=== PATIENT | female | born 1960 | race Hispanic/Latino ===

== ENCOUNTER 2017-07-08 08:41 | Observation (INO) | payer OTHER ==
--- NOTE | 2017-07-08 10:20 | RAD ---
PROCEDURE: Radiographs of the left humerus. HISTORY: Fall, left arm injury COMPARISON: None. FINDINGS: BONES: Bone alignment and mineralization are normal. There is no acute displaced fracture or bone destruction. SOFT TISSUES: Normal. OTHER FINDINGS: None. IMPRESSION: No acute displaced fracture or dislocation.
--- NOTE | 2017-07-08 10:22 | RAD ---
PROCEDURE: Radiographs of the left elbow. HISTORY: Fall COMPARISON: No prior. FINDINGS: BONES: There is an acute displaced fracture in the olecranon process with 10 mm superior displacement. JOINTS: Bone alignment is normal. . SOFT TISSUES: There is severe dorsal soft tissue swelling. JOINT EFFUSION: There is a moderate joint effusion. OTHER FINDINGS: None IMPRESSION: Acute displaced fracture in the olecranon process, moderate joint effusion and severe dorsal soft tissue swelling.
--- NOTE | 2017-07-08 10:23 | RAD ---
PROCEDURE: Radiographs of the Left Forearm HISTORY: fall L arm trauma COMPARISON: None available. TECHNIQUE: Frontal and lateral views obtained. FINDINGS: BONES: There is an acute displaced fracture in the olecranon process with 10 mm superior displacement. Bone alignment and mineralization are normal. JOINT SPACES: Unremarkable. OTHER FINDINGS: There is severe dorsal soft tissue swelling at the elbow joint. IMPRESSION: Acute displaced fracture in the olecranon process with severe dorsal soft tissue swelling at the elbow joint.
--- NOTE | 2017-07-08 10:28 | RAD ---
PROCEDURE: Radiographs of the Left Shoulder HISTORY: Fall COMPARISON: No prior. FINDINGS: BONES: Bone alignment and mineralization are normal. There is no acute displaced fracture or bone destruction. JOINTS: Normal. Glenohumeral and acromioclavicular joints preserved. No osteoarthritis. SOFT TISSUES: Normal. OTHER FINDINGS: None. IMPRESSION: No acute displaced fracture or dislocation.
--- NOTE | 2017-07-08 10:51 | ED PDOC ---
Upper Extremity Pain/Injury Time Seen by Provider: 07/08/17 09:10 Chief Complaint (Nursing): Upper Extremity Problem/Injury Chief Complaint (Provider): Fall injuries History Per: Patient History/Exam Limitations: no limitations Onset/Duration Of Symptoms: Hrs (today) Current Symptoms Are (Timing): Still Present Quality: "Pain" Additional Complaint(s): Angelika Erickson is a 56 year old female, with no significant past medical history, who was brought to the emergency department via EMS for left elbow injury s/p fall onset prior to arrival. Patient states she was commuting to work this morning attempting to catch [employer] [facility] [place] when she accidentally tripped and fell. Patient is right hand dominant. She denies any head or neck trauma, back pain, lower extremity pain, numbness or tingling to left hand or arm. No further medical complaints. PMD: None provided. Past Medical History Reviewed: Historical Data, Nursing Documentation, Vital Signs Vital Signs: Last Vital Signs Temp 97.8 F 07/08/17 08:45 Pulse 62 07/08/17 08:45 Resp 20 07/08/17 08:45 BP 161/106 H 07/08/17 08:45 Pulse Ox 100 07/08/17 08:45 - Medical History PMH: No Chronic Diseases - Surgical History Surgical History: Appendectomy Other surgeries: Right arm fracture repair - Family History Family History: States: No Known Family Hx - Social History Current smoker - smoking cessation education provided: No Alcohol: None Drugs: Denies - Allergies Allergies/Adverse Reactions: Allergies Allergy/AdvReac Type Severity Reaction Status Date / Time No Known Allergies Allergy Verified 07/08/17 08:48 Review of Systems ROS Statement: Except As Marked, All Systems Reviewed And Found Negative Musculoskeletal: Positive for: Arm Pain (left). Negative for: Neck Pain, Back Pain, Leg Pain, Foot Pain Neurological: Negative for: Numbness (to left hand) Physical Exam - Reviewed Nursing Documentation Reviewed: Yes Vital Signs Reviewed: Yes - Physical Exam Appears: Positive for: Non-toxic Head Exam: Positive for: ATRAUMATIC, NORMOCEPHALIC Skin: Positive for: Normal Color, Warm, Dry Eye Exam: Positive for: Normal appearance, EOMI, PERRL ENT: Positive for: Normal ENT Inspection Neck: Positive for: Painless ROM (No C-spine tenderness), Supple Cardiovascular/Chest: Positive for: Regular Rate, Rhythm, Chest Non Tender. Negative for: Murmur Respiratory: Positive for: Normal Breath Sounds. Negative for: Respiratory Distress Gastrointestinal/Abdominal: Positive for: Normal Exam, Soft. Negative for: Tenderness Back: Positive for: Normal Inspection. Negative for: L CVA Tenderness, R CVA Tenderness, Vertebral Tenderness Extremity: Positive for: Swelling (over the olecranon dorsal area, ++tender loss ROM), Other (small abrasion to right index finger. ). Negative for: Normal ROM (Left arm immobility of left elbow w/ pain and edema over the olecranon dorsal area.), Tenderness (Wrist and hand. Shoulder including clavicle nontender. ) Neurologic/Psych: Positive for: Alert, Oriented. Negative for: Motor/Sensory Deficits - ECG O2 Sat by Pulse Oximetry: 100 (RA) Pulse Ox Interpretation: Normal Medical Decision Making Medical Decision Making: Initial Impression: Fall injuries Initial Plan: --Morphine 2ml IM --Tylenol 325mg tab 650 mg PO --Elbow left 3 views routine [RAD] --Forearm left [RAD] --Humerus left [RAD] --Shoulder left [RAD] --reevaluation 10:18 Humerus X-Ray FINDINGS: BONES: Bone alignment and mineralization are normal. There is no acute displaced fracture or bone destruction. SOFT TISSUES: Normal. OTHER FINDINGS: None. IMPRESSION: No acute displaced fracture or dislocation. 10:22 Forearm X-Ray FINDINGS: BONES: There is an acute displaced fracture in the olecranon process with 10 mm superior displacement. Bone alignment and mineralization are normal. JOINT SPACES: Unremarkable. OTHER FINDINGS: There is severe dorsal soft tissue swelling at the elbow joint. IMPRESSION: Acute displaced fracture in the olecranon process with severe dorsal soft tissue swelling at the elbow joint. 10:20 Elbow X-Ray FINDINGS: BONES: There is an acute displaced fracture in the olecranon process with 10 mm superior displacement. JOINTS: Bone alignment is normal. . SOFT TISSUES: There is severe dorsal soft tissue swelling. JOINT EFFUSION: There is a moderate joint effusion. OTHER FINDINGS: None IMPRESSION: Acute displaced fracture in the olecranon process, moderate joint effusion and severe dorsal soft tissue swelling. 10:26 Shoulder X-Ray FINDINGS: BONES: Bone alignment and mineralization are normal. There is no acute displaced fracture or bone destruction. JOINTS: Normal. Glenohumeral and acromioclavicular joints preserved. No osteoarthritis. SOFT TISSUES: Normal. OTHER FINDINGS: None. IMPRESSION: No acute displaced fracture or dislocation. -Xray show acute fracture of left olecranon process displaced. -Will plan for ortho consult. 10:35 -Discussed case with kranthi El, who will come evaluate patient. - 1110am d/w Dr To orthopedics requested posterior splint, applied by tech confirmed by MD Admit Obs for orthopedic management/obs for compartment syndrome given edema/ fracture Scribe Attestation: Documented by Miquel Costa, acting as a scribe for Ru Norman MD Provider Scribe Attestation: All medical record entries made by the Scribe were at my direction and personally dictated by me. I have reviewed the chart and agree that the record accurately reflects my personal performance of the history, physical exam, medical decision making, and the department course for this patient. I have also personally directed, reviewed, and agree with the discharge instructions and disposition. Disposition - Clinical Impression Clinical Impression: Olecranon fracture - Patient ED Disposition Is Patient to be Admitted: Yes - Disposition Disposition Time: 10:55 Condition: FAIR - Pt Status Changed To: Hospital Disposition Of: Observation
--- NOTE | 2017-07-08 11:19 | CP.PCM.CON ---
History of Present Illness - History of Present Illness History of Present Illness: Orthopedic consult Patient is a RHD 56 y/o patient with no PMH who presents to [facility] ER following a L elbow injury. Patient states that she sustained a mechanical fall while [place] [address], commuting to work in [place] from [facility]. She notes that she fell directly onto her L elbow. Dr. To was consulted for orthopedic evaluation. Currently her pain is dull, aching in quality and locate diffusely about the elbow, mostly posterior. She rates the pain a 7/10 and it is associated with swelling. She notes that the pain occurs with any movement and is alleviated with rest and inactivity. The patient reports no other injuries. She denies any radiation of pain, numbness or tingling. She also denies any CP/SOB/N/V/D/fever/[place]/dysuria/melena. Review of Systems - Review of Systems All systems: reviewed and no additional remarkable complaints except Review of Systems: as per HPI Past Patient History - Past Medical History & Family History Past Medical History?: No Past Family History: Reviewed and not pertinent - Past Social History Smoking Status: Never Smoked Alcohol: Occasional (wine) Drugs: Denies - CARDIAC Hx Cardiac Disorders: No - PULMONARY Hx Respiratory Disorders: No - NEUROLOGICAL Hx Neurological Disorder: No - HEENT Hx HEENT Problems: No - RENAL Hx Chronic Kidney Disease: No - ENDOCRINE/METABOLIC Hx Endocrine Disorders: No - HEMATOLOGICAL/ONCOLOGICAL Hx Blood Disorders: No - INTEGUMENTARY Hx Dermatological Problems: No - MUSCULOSKELETAL/RHEUMATOLOGICAL Hx Musculoskeletal Disorders: Yes Hx Fractures: Yes (R wrist fx, s/p ORIF) - GASTROINTESTINAL Hx Gastrointestinal Disorders: No - GENITOURINARY/GYNECOLOGICAL Hx Genitourinary Disorders: No - PSYCHIATRIC Hx Psychophysiologic Disorder: No Hx Substance Use: No - SURGICAL HISTORY Hx Surgeries: Yes Hx Appendectomy: Yes Hx Orthopedic Surgery: Yes (R wrist ORIF) - ANESTHESIA Hx Anesthesia: Yes Hx Anesthesia Reactions: No Meds Allergies/Adverse Reactions: Allergies Allergy/AdvReac Type Severity Reaction Status Date / Time No Known Allergies Allergy Verified 07/08/17 08:48 - Medications Medications: none Physical Exam - Head Exam Head Exam: ATRAUMATIC, NORMOCEPHALIC - Eye Exam Eye Exam: EOMI, Normal appearance, PERRL - ENT Exam ENT Exam: Mucous Membranes Moist, Normal Exam - Neck Exam Neck exam: Positive for: Normal Inspection - Respiratory Exam Respiratory Exam: Clear to Auscultation Bilateral, NORMAL BREATHING PATTERN - Cardiovascular Exam Cardiovascular Exam: REGULAR RHYTHM - GI/Abdominal Exam GI & Abdominal Exam: Normal Bowel Sounds, Soft Additional comments: old appendectomy scar - Rectal Exam Rectal Exam: Deferred - Extremities Exam Additional comments: LUE: + swelling diffusely about elbow, +diffuse elbow tenderness with guarding, no lesions FROM shoulder/wrist/fingers, elbow ROM restricted due to fx sensation intact MN/UN/RN motor intact MN/UN/RN, decreased culture media laboratory assistant strength due to pain radial pulse intact comps soft NT RUE: no swelling, no tenderness, no lesions FROM sensation intact MN/UN/RN motor intact MN/UN/RN, good culture media laboratory assistant strength radial pulse intact comps soft NT Results - Vital Signs Recent Vital Signs: Last Vital Signs Temp 97.8 F 07/08/17 08:45 Pulse 62 07/08/17 08:45 Resp 20 07/08/17 08:45 BP 161/106 H 07/08/17 08:45 Pulse Ox 100 07/08/17 11:13 - Labs Result Diagrams: 07/08/17 12:30 07/08/17 12:30 Assessment & Plan (1) Olecranon fracture Assessment and Plan: Patient is a 56 y/o female who sustained a displaced left elbow olecranon fx -CT L elbow -Posterior long arm splint applied -NPO -NWB LUE, eliseo LUE -Proposed L elbow olecranon fx ORIF in OR today versus tomorrow, Risks/benefits of procedure explained to patient in detail. Patient agrees to proceed. -medical and cardiac clearance -above d/w Dr. To in agreement Status: Acute Radiology Interpretation - Plant Safety Engineer Plant Safety Engineer:: Radiologist - Study type Study type:: Plain films - Notes: Notes:: PROCEDURE: Radiographs of the left elbow. HISTORY: Fall COMPARISON: No prior. FINDINGS: BONES: There is an acute displaced fracture in the olecranon process with 10 mm superior displacement. JOINTS: Bone alignment is normal. . SOFT TISSUES: There is severe dorsal soft tissue swelling. JOINT EFFUSION: There is a moderate joint effusion. OTHER FINDINGS: None IMPRESSION: Acute displaced fracture in the olecranon process, moderate joint effusion and severe dorsal soft tissue swelling. - Radiology Interpretation #2 Interpretation: PROCEDURE: Radiographs of the Left Shoulder HISTORY: Fall COMPARISON: No prior. FINDINGS: BONES: Bone alignment and mineralization are normal. There is no acute displaced fracture or bone destruction. JOINTS: Normal. Glenohumeral and acromioclavicular joints preserved. No osteoarthritis. SOFT TISSUES: Normal. OTHER FINDINGS: None. IMPRESSION: No acute displaced fracture or dislocation. - Radiology Interpretation #3 Interpretation: PROCEDURE: Radiographs of the Left Forearm HISTORY: fall L arm trauma COMPARISON: None available. TECHNIQUE: Frontal and lateral views obtained. FINDINGS: BONES: There is an acute displaced fracture in the olecranon process with 10 mm superior displacement. Bone alignment and mineralization are normal. JOINT SPACES: Unremarkable. OTHER FINDINGS: There is severe dorsal soft tissue swelling at the elbow joint. IMPRESSION: Acute displaced fracture in the olecranon process with severe dorsal soft tissue swelling at the elbow joint. PROCEDURE: Radiographs of the left humerus. HISTORY: Fall, left arm injury COMPARISON: None. FINDINGS: BONES: Bone alignment and mineralization are normal. There is no acute displaced fracture or bone destruction. SOFT TISSUES: Normal. OTHER FINDINGS: None.
--- NOTE | 2017-07-08 11:40 | RAD ---
HISTORY: preop COMPARISON: No prior. FINDINGS: LUNGS: The lungs are well inflated and clear. PLEURA: No significant pleural effusion identified, no pneumothorax apparent. CARDIOVASCULAR: Normal. OSSEOUS STRUCTURES: No significant abnormalities. VISUALIZED UPPER ABDOMEN: Normal. OTHER FINDINGS: None. IMPRESSION: No active pulmonary disease.
[2017-07-08 12:44] LABS: BASO % 0.5 % (0.0-2.0); EOS % 0.2 % (0.0-4.0); HEMOGLOBIN 13.4 g/dL (12.0-16.0); LYMPH # 1.5 K/uL (1.0-4.3); LYMPH % 32.6 % (20.0-40.0); MEAN CELL VOLUME 95.3 fl (81.0-99.0); MEAN CORPUSCULAR HGB CONC 33.6 g/dL (33.0-37.0); MEAN PLATELET VOLUME 7.9 fl (7.2-11.7); MONO # 0.4 K/uL (0.0-0.8); MONO % 7.9 % (0.0-10.0); NEUT # 2.8 K/uL (1.8-7.0); NEUT % 58.8 % (50.0-75.0); NRBC % 0.1 % (0.0-0.0); RBC 4.19 Mil/uL (3.80-5.20); RED CELL DISTRIBUTION WIDTH 13.6 % (11.5-14.5); WHITE BLOOD COUNT 4.7 K/uL (4.8-10.8)
[2017-07-08 12:58] LABS: PARTIAL THROMBOPLASTIN TIME 30.3 Seconds (25.6-37.1); PROTHROMBIN TIME 10.7 Seconds (9.8-13.1)
[2017-07-08 12:59] LABS: BLOOD UREA NITROGEN 15 mg/dl (7-17); CALCIUM 9.3 mg/dL (8.4-10.2); GFR AFRICAN-AMERICAN > 60; GFR NON-AFRICAN AMERICAN > 60
--- NOTE | 2017-07-08 13:13 | CP.PCM.CON ---
History of Present Illness - History of Present Illness History of Present Illness: I WAS ASKED TO SEE THIS PATIENT PRE-OPERATIVE FOR A CARDIAC CLEARANCE. THE PATIENT IS A 56 YEAR OLD FEMALE WHO TRIPPED AT THE [employer] [facility] GOING TO WORK TODAY AND SUSTAINED A LEFT ELBOW FRACTURE. SHE WAS BROUGHT TO THE [facility] ER AND WILL NOW GO FOR ORTHOPEDIC SURGERY. SHE DENIES ANY KNOWN MEDICAL PROBLEMS. SHE DENIES CHEST PAIN OR SOB. SHE DENIES LOC STATING THAT SHE JUST TRIPPED AND FELL. Past Patient History - Past Medical History & Family History Past Medical History?: No Past Family History: Reviewed and not pertinent - Past Social History Smoking Status: Never Smoked Alcohol: Occasional (wine) Drugs: Denies - CARDIAC Hx Cardiac Disorders: No - PULMONARY Hx Respiratory Disorders: No - NEUROLOGICAL Hx Neurological Disorder: No - HEENT Hx HEENT Problems: No - RENAL Hx Chronic Kidney Disease: No - ENDOCRINE/METABOLIC Hx Endocrine Disorders: No - HEMATOLOGICAL/ONCOLOGICAL Hx Blood Disorders: No - INTEGUMENTARY Hx Dermatological Problems: No - MUSCULOSKELETAL/RHEUMATOLOGICAL Hx Musculoskeletal Disorders: Yes Hx Fractures: Yes (R wrist fx, s/p ORIF) - GASTROINTESTINAL Hx Gastrointestinal Disorders: No - GENITOURINARY/GYNECOLOGICAL Hx Genitourinary Disorders: No - PSYCHIATRIC Hx Psychophysiologic Disorder: No Hx Substance Use: No - SURGICAL HISTORY Hx Surgeries: Yes Hx Appendectomy: Yes Hx Orthopedic Surgery: Yes (R wrist ORIF) - ANESTHESIA Hx Anesthesia: Yes Hx Anesthesia Reactions: No Meds Allergies/Adverse Reactions: Allergies Allergy/AdvReac Type Severity Reaction Status Date / Time No Known Allergies Allergy Verified 07/08/17 08:48 Physical Exam - Respiratory Exam Respiratory Exam: Clear to Auscultation Bilateral - Cardiovascular Exam Cardiovascular Exam: Bradycardia, +S1, +S2 - Extremities Exam Additional comments: NO EDEMA OF LE - Additional Findings Additional findings: 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, R 49, OTHERWISE NORMAL EKG Results - Vital Signs Recent Vital Signs: Last Vital Signs Temp 97.8 F 07/08/17 12:45 Pulse 62 07/08/17 12:45 Resp 20 07/08/17 12:45 BP 161/106 H 07/08/17 12:45 Pulse Ox 100 07/08/17 11:42 - Labs Result Diagrams: 07/08/17 12:30 07/08/17 12:30 Labs: Laboratory Results - last 24 hr 07/08/17 07/08/17 07/08/17 12:30 12:30 12:30 WBC 4.7 L RBC 4.19 Hgb 13.4 Hct 39.9 MCV 95.3 MCH 32.0 H MCHC 33.6 RDW 13.6 Plt Count 297 MPV 7.9 Neut % (Auto) 58.8 Lymph % (Auto) 32.6 [place] % (Auto) 7.9 Eos % (Auto) 0.2 Baso % (Auto) 0.5 Neut # (Auto) 2.8 Lymph # (Auto) 1.5 [place] # (Auto) 0.4 Eos # (Auto) 0.0 Baso # (Auto) 0.0 PT 10.7 INR 1.0 APTT 30.3 Sodium 140 Potassium 4.5 Chloride 101 Carbon Dioxide 26 Anion Gap 18 BUN 15 Creatinine 0.7 Est GFR ( Amer) > 60 Est GFR (Non-Af Amer) > 60 Random Glucose 110 H Calcium 9.3 BBK History Checked 07/08/17 12:48 WBC RBC Hgb Hct MCV MCH MCHC RDW Plt Count MPV Neut % (Auto) Lymph % (Auto) [place] % (Auto) Eos % (Auto) Baso % (Auto) Neut # (Auto) Lymph # (Auto) [place] # (Auto) Eos # (Auto) Baso # (Auto) PT INR APTT Sodium Potassium Chloride Carbon Dioxide Anion Gap BUN Creatinine Est GFR ( Amer) Est GFR (Non-Af Amer) Random Glucose Calcium BBK History Checked No verified bt Assessment & Plan - Assessment and Plan (Free Text) Assessment: FALL WITH LEFT ELBOW FRACTURE SINUS BRADYCARDIA-BENIGN Plan: THE PATIENT IS CLEARED FOR SURGERY
--- NOTE | 2017-07-08 13:34 | CP.PCM.HP ---
History of Present Illness - History of Present Illness History of Present Illness: 56 y/o female with no PMH presented to Er for evaluation of her left elbow. history obtained from patient . As per her she had a mechanical fall on her left elbow ,while crossing the street early today. She denied any dizziness, blurry vision , palpitations, localized weakness.She went to work and felt like something was not right so decided to come to ER. Imaging in ER showed Acute displaced fracture in the olecranon process, moderate joint effusion and severe dorsal soft tissue swelling. She has worsening of pain with movement but at present pain is controlled with morphine. She denies any chest pain , SOB, palpittaiosn, PND, orthopnea, urinary symptoms or changes in bowel movements .She denies any numbness or tingling sensation to her arm and fingers.ortho consulted in ER that recommended surgical correction . Last meal was early this AM. 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 Code status ; full code ROS ; 14 point review of system negative except above Present on Admission - Present on Admission Any Indicators Present on Admission: No Review of Systems - Review of Systems All systems: reviewed and no additional remarkable complaints except Past Patient History - Infectious Disease Hx of Infectious Diseases: None - Tetanus Immunizations Tetanus Immunization: Unknown - Past Medical History & Family History Past Medical History?: No Past Family History: Reviewed and not pertinent - Past Social History Smoking Status: Never Smoked Chewing Tobacco Use: No Cigar Use: No Alcohol: Occasional (wine) Drugs: Denies Domestic Violence: Negative - CARDIAC Hx Cardiac Disorders: No - PULMONARY Hx Respiratory Disorders: No - NEUROLOGICAL Hx Neurological Disorder: No - HEENT Hx HEENT Problems: No - RENAL Hx Chronic Kidney Disease: No - ENDOCRINE/METABOLIC Hx Endocrine Disorders: No - HEMATOLOGICAL/ONCOLOGICAL Hx Blood Disorders: No - INTEGUMENTARY Hx Dermatological Problems: No - MUSCULOSKELETAL/RHEUMATOLOGICAL Hx Musculoskeletal Disorders: Yes Hx Fractures: Yes (R wrist fx, s/p ORIF) - GASTROINTESTINAL Hx Gastrointestinal Disorders: No - GENITOURINARY/GYNECOLOGICAL Hx Genitourinary Disorders: No - PSYCHIATRIC Hx Psychophysiologic Disorder: No Hx Substance Use: No - SURGICAL HISTORY Hx Surgeries: Yes Hx Appendectomy: Yes Hx Orthopedic Surgery: Yes (R wrist ORIF) - ANESTHESIA Hx Anesthesia: Yes Hx Anesthesia Reactions: No Meds Allergies/Adverse Reactions: Allergies Allergy/AdvReac Type Severity Reaction Status Date / Time No Known Allergies Allergy Verified 07/08/17 08:48 Physical Exam - Constitutional Appears: Non-toxic, No Acute Distress - Head Exam Head Exam: ATRAUMATIC, NORMAL INSPECTION, NORMOCEPHALIC - Eye Exam Eye Exam: EOMI, Normal appearance, PERRL Pupil Exam: NORMAL ACCOMODATION - ENT Exam ENT Exam: Mucous Membranes Moist, Normal Exam - Neck Exam Neck exam: Positive for: Full Rom, Normal Inspection - Respiratory Exam Respiratory Exam: Clear to Auscultation Bilateral, NORMAL BREATHING PATTERN. absent: Rales, Rhonchi, Wheezes - Cardiovascular Exam Cardiovascular Exam: REGULAR RHYTHM, RRR, +S1, +S2. absent: JVD - GI/Abdominal Exam GI & Abdominal Exam: Normal Bowel Sounds, Soft. absent: Distended, Guarding, Rebound, Tenderness - Rectal Exam Rectal Exam: Deferred - Extremities Exam Extremities exam: Positive for: normal capillary refill. Negative for: calf tenderness, pedal edema Additional comments: left arm sling in place pulses intact - Back Exam Back exam: NORMAL INSPECTION - Neurological Exam Neurological exam: Alert, CN II-XII Intact, Oriented x3, Reflexes Normal - Psychiatric Exam Psychiatric exam: Normal Affect, Normal Mood - Skin Skin Exam: Dry, Intact, Normal Color, Warm Results - Vital Signs Recent Vital Signs: Last Vital Signs Temp 98.1 F 07/08/17 12:50 Pulse 53 L 07/08/17 12:50 Resp 18 07/08/17 12:50 BP 133/78 07/08/17 12:50 Pulse Ox 100 07/08/17 12:50 - Labs Result Diagrams: 07/08/17 12:30 07/08/17 12:30 Labs: Laboratory Results - last 24 hr 07/08/17 07/08/17 07/08/17 12:30 12:30 12:30 WBC 4.7 L RBC 4.19 Hgb 13.4 Hct 39.9 MCV 95.3 MCH 32.0 H MCHC 33.6 RDW 13.6 Plt Count 297 MPV 7.9 Neut % (Auto) 58.8 Lymph % (Auto) 32.6 [place] % (Auto) 7.9 Eos % (Auto) 0.2 Baso % (Auto) 0.5 Neut # (Auto) 2.8 Lymph # (Auto) 1.5 [place] # (Auto) 0.4 Eos # (Auto) 0.0 Baso # (Auto) 0.0 PT 10.7 INR 1.0 APTT 30.3 Sodium 140 Potassium 4.5 Chloride 101 Carbon Dioxide 26 Anion Gap 18 BUN 15 Creatinine 0.7 Est GFR ( Amer) > 60 Est GFR (Non-Af Amer) > 60 Random Glucose 110 H Calcium 9.3 BBK History Checked 07/08/17 12:48 WBC RBC Hgb Hct MCV MCH MCHC RDW Plt Count MPV Neut % (Auto) Lymph % (Auto) [place] % (Auto) Eos % (Auto) Baso % (Auto) Neut # (Auto) Lymph # (Auto) [place] # (Auto) Eos # (Auto) Baso # (Auto) PT INR APTT Sodium Potassium Chloride Carbon Dioxide Anion Gap BUN Creatinine Est GFR ( Amer) Est GFR (Non-Af Amer) Random Glucose Calcium BBK History Checked No verified bt Assessment & Plan - Assessment and Plan (Free Text) Assessment: 56 y/o female with no PMH presented to Er for evaluation of her left elbow. history obtained from patient . As per her she had a mechanical fall on her left elbow ,while crossing the street early today. She denied any dizziness, blurry vision , palpitations, localized weakness.She went to work and felt like something was not right so decided to come to ER. Imaging in ER showed Acute displaced fracture in the olecranon process, moderate joint effusion and severe dorsal soft tissue swelling. She has worsening of pain with movement but at present pain is controlled with morphine. She denies any chest pain , SOB, palpittaiosn, PND, orthopnea, urinary symptoms or changes in bowel movements .She denies any numbness or tingling sensation to her arm and fingers.Ortho consulted in ER that recommended surgical correction . Last meal was early this AM. 1. Left elbow fracture Place under observation in med/surg Keep NPO Ortho consulted NWB to LUE Pain management PRN Patient is low risk for surgery 2. DVT prophylaxis SCD
[2017-07-08] MEDS ORDERED: Sodium Chloride 0.9% 1,000 ML IV SCH (14:00)
[2017-07-08 15:56] LABS: URINE BILIRUBIN NEGATIVE (NEGATIVE); URINE BLOOD NEGATIVE (NEGATIVE); URINE CLARITY CLEAR (Clear); URINE COLOR COLORLESS (YELLOW); URINE GLUCOSE (UA) NEG (Normal); URINE LEUKOCYTE ESTERASE NEG Leu/uL (Negative); URINE PROTEIN NEGATIVE (NEGATIVE); URINE UROBILINOGEN 0.2-1.0 mg/dL (0.2-1.0)
--- NOTE | 2017-07-08 16:16 | CT ---
PROCEDURE: LEFT ELBOW CT WITHOUT CONTRAST HISTORY: L olecranon fx COMPARISON: Correlation is made with prior TECHNIQUE: A volumetric CT acquisition was performed through the left elbow without intravenous contrast for evaluation of left olecranon fracture. Reformatted datasets provided sagittal axial coronal planes including surface rendered series. Contrast Dose: None Radiation dose:Total exam DLP = 136.96 mGy-cm. This CT exam was performed using one or more of the following dose reduction techniques: Automated exposure control, adjustment of the mA and/or kV according to patient size, and/or use of iterative reconstruction technique. FINDINGS: There is a transverse fracture of the proximal ulna extending through the olecranon process which is distracted posteriorly and slightly superiorly by 2.5 cm. There is minimal comminution of the olecranon fracture with a small set fragment identified at the ulnar side of the olecranon process not distracted from the main fracture fragment. There is no dislocation or subluxation identified at this time either. The radial head is intact without acute fracture and no destructive bony lesion is appreciated. Surrounding soft tissue edema appears prominent however no additional fracture appreciate throughout the right elbow left elbow. The visualized distal humerus appears intact as well as the proximal ulna as imaged. IMPRESSION: Minimal comminuted fracture of the olecranon process distracted proximally from fracture site by approximate 2.5 cm without dislocation or subluxation. Prominent local soft tissue edema overlies the olecranon process. Please see discussion above.
[2017-07-08] MEDS ORDERED: Sodium Chloride 0.9% 500 ML IV ONE (17:23)
[2017-07-08] MEDS ORDERED: Succinylcholine 200 mg/10 ml Inj IV ONE (17:28)
[2017-07-08] MEDS ORDERED: Vecuronium 10 mg Inj ONE (17:28)
[2017-07-08] MEDS ORDERED: Propofol 10 mg/ml Inj (20 ML) ONE (17:28)
[2017-07-08] MEDS ORDERED: Lidocaine 4% (Laryng-O-Jet) Kit MM ONE (17:28)
[2017-07-08] MEDS ORDERED: Bupivacaine HCl 0.5% PF (30 ml) Inj ONE (17:33)
[2017-07-08] MEDS ORDERED: Lidocaine 2% Inj (20ml) ONE (17:34)
[2017-07-08] MEDS ORDERED: Bacitracin Ointment 30 GM TUBE ONE (17:34)
[2017-07-08] MEDS ORDERED: Bupivacaine 0.5% Inj(30mL) ONE (17:34)
[2017-07-08] MEDS ORDERED: Absorbable Gelatin Sponge Size 100 ONE (17:34)
[2017-07-08] MEDS ORDERED: Thrombin Topical 5,000 Int Units Spray Kit ONE (17:35)
[2017-07-08] MEDS ORDERED: Lactated Ringer's 1,000 ML IV ONE (18:25)
[2017-07-08] MEDS ORDERED: Midazolam 2 MG/2 ML VIAL ONE (18:27)
[2017-07-08] MEDS ORDERED: Neostigmine 1:1000 (1 mg/ml) Inj ONE (18:46)
[2017-07-08] MEDS ORDERED: Bacitracin OINT 15GM TOP ONE (19:37)
--- NOTE | 2017-07-08 20:06 | PCM.SURG1 ---
Surgeon's Initial Post Op Note - Surgeon's Notes Surgeon: Zuleika Senior Director Finance: LOLI Burdick Type of Anesthesia: General Endo Anesthesia Administered By: DR Rafael Barillas Pre-Operative Diagnosis: Displaced L olecranon fx Operative Findings: as above. hemorhage olecranon bursa. triceps tendon trauma Post-Operative Diagnosis: as above Operation Performed: ORIF dipslaced L olecranon fx. primary repair triceps tendon. excision olecranon bursa. autograft/allograft bone graft. appl posterior splint Specimen/Specimens Removed: callous/bone Estimated Blood Loss: EBL {In ML}: 5 Blood Products Given: N/A Drains Used: No Drains Post-Op Condition: Good Date of Surgery/Procedure: 07/08/17 Time of Surgery/Procedure: 19:05 (time in room/anaesthesia inductioin [id number])
--- NOTE | 2017-07-08 20:15 | CARD ---
APPROVED REPORT EKG Measurement Heart [id number] <Conclusion> Sinus bradycardia Otherwise normal ECG
[2017-07-08] MEDS ORDERED: HYDROmorphone 0.5 mg/0.5 ml ISec IVP PRN (20:21)
--- NOTE | 2017-07-08 20:24 | PCM.ANESB4 ---
Infraclavicular Block - Femoral Nerve Block Date of Procedure: 07/08/17 Anesthesiologist: Moe Pre-Procedure Diagnosis: Left olecranon fracture Post-Procedure Diagnosis: Same Procedure Performed: Brachial Plexus at the Infraclavicular area Left - Procedure Infraclavicular Block: The procedure was explained to the patient that it is for the post-operative pain management. Consent was obtained after a thorough discussion with the patient regarding the benefits and possible complications of local anesthetic block of the brachial plexus at the infraclavicular area. The patient was brought to the operating room and standard monitors were applied. Time-out was held with the circulating nurse to confirm the correct surgery and the appropriate block. Under general anesthesia, patient's head was gently rotated away from the operative ____left____ shoulder and the area medial to the coracoid process and inferior to the clavicle was carefully palpated. The ultrasound transducer was then applied to the skin in the transverse plane and the brachial plexus was visualized surrounding the axillary artery and deep to the pectoralis major and minor muscles. After thorough identification, this area was prepped with Chloraprep. At this point, a #21 gauge Stimuplex 4-inch needle was inserted cephalad to the ultrasound transducer and inferior to the clavicle in-plane towards the posterior aspect of the axillary artery. Needle advancement was performed carefully under ultrasound visualization. Nerve stimulator was used and twitch of the affected extremity including fingers, hand, wrist and elbow was obtained at current of ___0.48__MA. After repeated negative aspiration, __2___cc of _0.5_ ___% ____bupivivaine was injected and this was followed with __ _23___ cc of __0.5 % ___bupivicaine . Under ultrasound guidance the local anesthetics were observed surrounding the cords of the brachial plexus. The needle was removed intact. The patient tolerated the infraclavicular block of the brachial plexus well with stable vital signs was prepared for subsequent surgery.
[2017-07-08] MEDS ORDERED: Lactated Ringer's 1,000 ML IV SCH (20:30)
[2017-07-09 07:40] VITALS: BP 124/84; RESP 18; TEMP 97.3
--- NOTE | 2017-07-09 08:41 | CP.PCM.PN ---
Subjective - Date & Time of Evaluation Date of Evaluation: 07/09/17 Time of Evaluation: 07:30 - Subjective Subjective: Patient seen and examined at bedside comfortable. No complaints of pain 2nd to nerve block. No acute events overnight. Objective - Vital Signs/Intake and Output Vital Signs (last 24 hours): Temp Pulse Resp BP Pulse Ox 97.3 F L 62 18 124/84 100 07/09/17 07:39 07/09/17 07:39 07/09/17 07:39 07/09/17 07:39 07/09/17 07:39 - Medications Medications: Current Medications Acetaminophen (Tylenol 325mg Tab) 650 mg PO Q6 PRN PRN Reason: Fever >100.4 F Docusate Sodium (Colace) 100 mg PO BID [facility] Last Admin: 07/08/17 16:41 Dose: Not Given Sodium Chloride (Sodium Chloride 0.9%) 1,000 mls @ 100 mls/hr IV .Q10H [facility] Last Admin: 07/08/17 15:40 Dose: 100 mls/hr Lactated Ringer's (Lactated Ringer's) 1,000 mls @ 100 mls/hr IV .Q10H [facility] Last Admin: 07/09/17 02:19 Dose: 100 mls/hr Cefazolin Sodium 2 gm/ Sodium (Chloride) 100 mls @ 100 mls/hr IVPB Q8 [facility] PRN Reason: Protocol Stop: 07/09/17 09:59 Ketorolac Tromethamine (Toradol) 30 mg IVP Q6 PRN PRN Reason: Pain, moderate (4-7) Morphine Sulfate (Morphine) 2 mg IVP Q4 PRN PRN Reason: Pain, severe (8-10) Ondansetron HCl (Zofran Inj) 4 mg IVP Q6 PRN PRN Reason: Nausea/Vomiting Pantoprazole Sodium (Protonix Ec Tab) 40 mg PO DAILY [facility] - Labs Labs: 07/08/17 12:30 07/08/17 12:30 PT 10.7 Seconds (9.8-13.1) 07/08/17 12:30 INR 1.0 (0.9-1.2) 07/08/17 12:30 APTT 30.3 Seconds (25.6-37.1) 07/08/17 12:30 - Extremities Exam Additional comments: LUE: posterior splint CDI, minimal swelling sensation slightly diminished MN/RN/UN 2nd to nerve block motor intact MN/UN/RN 2 sec cap refill Assessment and Plan (1) Olecranon fracture Assessment & Plan: POD#1 s/p L olecranon fx ORIF -Maintain splint -OT NWB LUE -elevate extremity -clear to d/c home from ortho standpoint -f/u in office in 7-10 days, call for appt -above d/w Dr. To in agreement Status: Acute
[2017-07-09] MEDS ORDERED: Pantoprazole 40 mg EC Tab PO SCH (09:00)
--- NOTE | 2017-07-09 09:00 | CP.PCM.PN ---
Subjective - Date & Time of Evaluation Date of Evaluation: 07/09/17 Time of Evaluation: 08:30 - Subjective Subjective: NO COMPLAINTS Objective - Vital Signs/Intake and Output Vital Signs (last 24 hours): Temp Pulse Resp BP Pulse Ox 97.3 F L 62 18 124/84 100 07/09/17 07:39 07/09/17 07:39 07/09/17 07:39 07/09/17 07:39 07/09/17 07:39 - Medications Medications: Current Medications Acetaminophen (Tylenol 325mg Tab) 650 mg PO Q6 PRN PRN Reason: Fever >100.4 F Docusate Sodium (Colace) 100 mg PO BID [facility] Last Admin: 07/08/17 16:41 Dose: Not Given Sodium Chloride (Sodium Chloride 0.9%) 1,000 mls @ 100 mls/hr IV .Q10H [facility] Last Admin: 07/08/17 15:40 Dose: 100 mls/hr Lactated Ringer's (Lactated Ringer's) 1,000 mls @ 100 mls/hr IV .Q10H [facility] Last Admin: 07/09/17 02:19 Dose: 100 mls/hr Cefazolin Sodium 2 gm/ Sodium (Chloride) 100 mls @ 100 mls/hr IVPB Q8 [facility] PRN Reason: Protocol Stop: 07/09/17 09:59 Ketorolac Tromethamine (Toradol) 30 mg IVP Q6 PRN PRN Reason: Pain, moderate (4-7) Morphine Sulfate (Morphine) 2 mg IVP Q4 PRN PRN Reason: Pain, severe (8-10) Ondansetron HCl (Zofran Inj) 4 mg IVP Q6 PRN PRN Reason: Nausea/Vomiting Pantoprazole Sodium (Protonix Ec Tab) 40 mg PO DAILY [facility] - Labs Labs: 07/08/17 12:30 07/08/17 12:30 PT 10.7 Seconds (9.8-13.1) 07/08/17 12:30 INR 1.0 (0.9-1.2) 07/08/17 12:30 APTT 30.3 Seconds (25.6-37.1) 07/08/17 12:30 - Respiratory Exam Respiratory Exam: Clear to Ausculation Bilateral - Cardiovascular Exam Cardiovascular Exam: REGULAR RHYTHM, +S1, +S2 - Extremities Exam Additional comments: LUE IN CAST - Additional Findings Additional findings: OR NOTES REVIEWED WITH ORIF OF LEFT OLECRANON FX Assessment and Plan - Assessment and Plan (Free Text) Assessment: SURGICAL REPAIR OF LEFT ELBOW FRACTURE STABLE CARDIAC FUNCTION Plan: CONTINUE ANTIBIOTICS AND PAIN MEDICATIONS
--- NOTE | 2017-07-09 09:13 | RAD ---
PROCEDURE: Radiographs of the left elbow. HISTORY: post op ORIF COMPARISON: Left ankle radiographs dated 07/08/2017. FINDINGS: Left upper extremity cast is now present, limiting evaluation of fine bony detail. There has been interval reduction internal pain and wire fixation of the previously described olecranon fracture with osseous components now in anatomic alignment. No other significant interval changes are noted IMPRESSION: Interval ORIF of the previously described olecranon fracture.
[2017-07-09] MEDS: ceFAZolin 2 GM in Sodium Chloride 0.9% 100 ML IVPB SCH ×2 (09:51→13:08)
--- NOTE | 2017-07-09 09:57 | CP.PCM.DIS ---
Provider - Provider Date of Admission: 07/08/17 11:14 Attending physician: Greta France MD Consults: Ortho : Dr To Cardio: Dr Murillo Time Spent in preparation of Discharge (in minutes): 25 Diagnosis - Discharge Diagnosis (1) Olecranon fracture Status: Acute Hospital Course - Lab Results Lab Results: Most Recent Lab Values WBC 4.7 K/uL (4.8-10.8) L 07/08/17 12:30 RBC 4.19 Mil/uL (3.80-5.20) 07/08/17 12:30 Hgb 13.4 g/dL (12.0-16.0) 07/08/17 12:30 Hct 39.9 % (34.0-47.0) 07/08/17 12:30 MCV 95.3 fl (81.0-99.0) 07/08/17 12:30 MCH 32.0 pg (27.0-31.0) H 07/08/17 12:30 MCHC 33.6 g/dL (33.0-37.0) 07/08/17 12:30 RDW 13.6 % (11.5-14.5) 07/08/17 12:30 Plt Count 297 K/uL (130-400) 07/08/17 12:30 MPV 7.9 fl (7.2-11.7) 07/08/17 12:30 Neut % (Auto) 58.8 % (50.0-75.0) 07/08/17 12:30 Lymph % (Auto) 32.6 % (20.0-40.0) 07/08/17 12:30 Hitchcock % (Auto) 7.9 % (0.0-10.0) 07/08/17 12:30 Eos % (Auto) 0.2 % (0.0-4.0) 07/08/17 12:30 Baso % (Auto) 0.5 % (0.0-2.0) 07/08/17 12:30 Neut # (Auto) 2.8 K/uL (1.8-7.0) 07/08/17 12:30 Lymph # (Auto) 1.5 K/uL (1.0-4.3) 07/08/17 12:30 Hitchcock # (Auto) 0.4 K/uL (0.0-0.8) 07/08/17 12:30 Eos # (Auto) 0.0 K/uL (0.0-0.7) 07/08/17 12:30 Baso # (Auto) 0.0 K/uL (0.0-0.2) 07/08/17 12:30 PT 10.7 Seconds (9.8-13.1) 07/08/17 12:30 INR 1.0 (0.9-1.2) 07/08/17 12:30 APTT 30.3 Seconds (25.6-37.1) 07/08/17 12:30 Sodium 140 mmol/l (132-148) 07/08/17 12:30 Potassium 4.5 MMOL/L (3.6-5.0) 07/08/17 12:30 Chloride 101 mmol/L (98-107) 07/08/17 12:30 Carbon Dioxide 26 mmol/L (22-30) 07/08/17 12:30 Anion Gap 18 (10-20) 07/08/17 12:30 BUN 15 mg/dl (7-17) 07/08/17 12:30 Creatinine 0.7 mg/dl (0.7-1.2) 07/08/17 12:30 Est GFR ( Amer) > 60 07/08/17 12:30 Est GFR (Non-Af Amer) > 60 07/08/17 12:30 Random Glucose 110 mg/dL (65-105) H 07/08/17 12:30 Calcium 9.3 mg/dL (8.4-10.2) 07/08/17 12:30 Urine Color Colorless (YELLOW) 07/08/17 15:45 Urine Clarity Clear (Clear) 07/08/17 15:45 Urine pH 7.0 (5.0-8.0) 07/08/17 15:45 Ur Specific [place] 1.005 (1.003-1.030) 07/08/17 15:45 Urine Protein Negative mg/dL (NEGATIVE) 07/08/17 15:45 Urine Glucose (UA) Neg mg/dL (Normal) 07/08/17 15:45 Urine Ketones Negative mg/dL (NEGATIVE) 07/08/17 15:45 Urine Blood Negative (NEGATIVE) 07/08/17 15:45 Urine Nitrate Negative (NEGATIVE) 07/08/17 15:45 Urine Bilirubin Negative (NEGATIVE) 07/08/17 15:45 Urine Urobilinogen 0.2-1.0 mg/dL (0.2-1.0) 07/08/17 15:45 Ur Leukocyte Esterase Neg Martha/uL (Negative) 07/08/17 15:45 Urine RBC (Auto) 1 /hpf (0-3) 07/08/17 15:45 Blood Type A POSITIVE 07/08/17 12:48 Blood Type Confirm A POSITIVE 07/08/17 14:32 Antibody Screen Negative 07/08/17 12:48 BBK History Checked No verified bt 07/08/17 12:48 - Hospital Course Hospital Course: 56 y/o female with no PMH presented to the ED for evaluation of left elbow pain after a mechanical fall. She denied any dizziness, blurry vision , palpitations, localized weakness. Imaging in ER showed Acute displaced fracture in the olecranon process, moderate joint effusion and severe dorsal soft tissue swelling. Ortho was consulted and Pt had 1. Left elbow fracture ( Olecranon Process) s/p ORIF Ortho consulted : Dr To Pt had ORIF done yesterday Doing well post op Keep Left arm elevated NWB to LUE Pain management d/c home - ff up with Dr To next wk 2. DVT prophylaxis SCD Discharge Exam - Head Exam Head Exam: ATRAUMATIC, NORMAL INSPECTION, NORMOCEPHALIC - Eye Exam Eye Exam: EOMI, Normal appearance, PERRL Pupil Exam: NORMAL ACCOMODATION - ENT Exam ENT Exam: Mucous Membranes Moist, Normal External Ear Exam - Neck Exam Neck exam: Full Rom - Respiratory Exam Respiratory Exam: NORMAL BREATHING PATTERN. absent: Respiratory Distress - Cardiovascular Exam Cardiovascular Exam: REGULAR RHYTHM, +S1, +S2 - GI/Abdominal Exam GI & Abdominal Exam: Normal Bowel Sounds, Soft. absent: Tenderness - Extremities Exam Extremities exam: normal capillary refill, normal inspection, pedal pulses present Additional comments: left arm with dressing - placed on Shoulder immobilizer - Back Exam Back exam: FULL ROM. absent: CVA tenderness (L), CVA tenderness (R), paraspinal tenderness, vertebral tenderness - Neurological Exam Neurological exam: Alert, CN II-XII Intact, Normal Gait, Oriented x3, Reflexes Normal - Psychiatric Exam Psychiatric exam: Normal Affect, Normal Mood - Skin Skin Exam: Dry, Normal Color, Warm Discharge Plan - Discharge Medications Prescriptions: oxyCODONE/Acetaminophen [Percocet 5/325 mg Tab] 1 ea PO Q6 PRN #20 tab PRN Reason: Pain, Moderate (4-7) - Follow Up Plan Condition: GOOD Disposition: HOME/ ROUTINE Instructions: Elbow Fracture (DC), Open Reduction and Internal Fixation Surgery (DC) Additional Instructions: ff up with DR To in 1 wk Keep arm elevated Use Shoulder immobilizer Referrals: Mani To III, MD [Staff Provider] - Kush Tafoya MD [Family Provider] -
[2017-07-09 10:44] VITALS: PULSE 72; O2SAT 97
--- NOTE | 2017-07-10 07:45 | OP ---
PROCEDURE DATE: 07/08/17 PREOPERATIVE DIAGNOSIS: Displaced olecranon fracture. POSTOPERATIVE DIAGNOSIS: Displaced olecranon fracture. PROCEDURE: 1. Open reduction internal fixation displaced left olecranon fracture. 2. Primary repair of triceps tendon. 3. Partial bursectomy. 4. Autograft, allograft bone graft. 5. Application posterior splint. 6. Positioning of fluoroscope interpretation of video images. SURGEON Dr. To. GROUP WORK PROGRAM DIRECTOR: Paz Noriega, certified registered nursing heel sprayer first. ANESTHESIA: General endotracheal anesthesia. ANESTHESIOLOGIST: Rafael Rosa MD COMPLICATIONS: No complications. DRAINS: No drains. OPERATIVE INDICATION: Angelika Erickson is a 56-year-old woman who fell crossing the [facility] directly on her left elbow sustaining fracture. The patient works in [employer] and presents the Emergency Room with a displaced left olecranon fracture. The patient is admitted, stabilized. Pros, cons, risks and benefits of surgical approach discussed. The possibility of mechanical failure, infection, thromboembolic disease, secondary or tertiary surgery was discussed. The patient understands the discomfort and wished the surgery to be accomplished. Possibility of stiffness, mechanical failure, infection, thromboembolic disease, nerve injury was discussed. OPERATIVE PROCEDURE: After having obtained informed consent, after having identified side, site and procedure and a critical pause/time-out after the satisfactory induction of the anesthetic, the patient identified as an Angelika Erickson in the supine position with all bony prominences well padded. The left upper extremity was prepped and free draped in usual fashion for upper extremity surgery. Tourniquet had been applied but was not yet inflated. After exsanguinating the limb using a 4-inch Esmarch bandage, tourniquet which had been applied was inflated to 250 mmHg. This having been accomplished under the surgeon's direction, the fluoroscope was positioned, video images were generated, therapeutic decisions were made therefrom. At this point in time, an incision was accomplished five fingerbreadths distal to the olecranon process, three fingerbreadths proximal and superficial to the triceps tendon. The skin incision was carried down through the skin, subcutaneous tissue. Hemostasis controlled. Dissection was carried out superficial to the triceps tendon. The olecranon fragment is identified. The olecranon fragments is curetted of healing callus as is the distal aspect of the ulna. Soft tissue from the triangular point of the ulnar proximal ulnar is carefully dissected using #15 blade. This having been accomplished, the wound was thoroughly irrigated. Arthrotomy having been accomplished through the fracture site and the joint is thoroughly irrigated. This having been accomplished, the fracture was reduced and held with bone holding clamps. The verification of position is offered on image intensification views. A 2.0 mm K-wires were placed through the fragment into the shaft of the ulna. This having been accomplished at approximately three fingerbreadths distal to the fracture site using a 2.5 drill, drill bit was accomplished through the ulna and the cerclage wire was placed through the whole. A mnowbw-cp-dewqh cerclage technique was accomplished around the two K-wires and tightening is accomplished with the jet out and out cigar maker hand. The excess wire was placed around one of the K-wires and this having been accomplished, the K-wires were clipped and bent and were driven into the olecranon. Verification of position is offered on image intensification views. Therefore, the jycfvb-gz-dstey cerclage wire technique had been accomplished using two 2.0 mm the K-wires and the cerclage wire. This having been accomplished, autograft, allograft bone grafting was accomplished at this point in time. Incisions had been made in the triceps to allow the introduction of the wires. At this point time, the triceps tendon was repaired with interrupted sutures. It should be noted that on the approach, the skin incision had been carried down through the skin and subcutaneous tissues. The bursa was found to be hemorrhagic and partial bursectomy was accomplished at this point then having accomplished partial bursectomy, repair of the triceps tendon using interrupted sutures and primary fixation of the fraction, the wound was thoroughly irrigated. Autograft, allograft bone grafting is applied to the fracture. Closures in layers, 0 Vicryl, 2-0 Vicryl and shwetha for skin. Catalino Mendoza compression dressing and posterior splint was applied. Verification of position is offered on image intensification views. Image intensification views were obtained and the surgeon accomplished is therapeutic decisions made upon these fluoroscopic views. Catalino Mendoza compression dressing and long-arm posterior splint was applied. Mani, Boiardo MD DD: $#DTDICT $#TMDICT([facility]:mm:ss) DT: $#DTTRAN $#TMTRAN([facility]:mm:ss) Job # $#DOCID
--- NOTE | 2017-07-10 12:29 | RAD ---
PROCEDURE: Intraoperative Fluoroscopy. HISTORY: FLUOROSCOPY FINDINGS: Fluoroscopic assistance was provided for olecranon fracture open reduction and internal fixation. Please refer to the operative report from [facility].
== END 2017-07-09 14:39 | disposition home or self-care (01) ==
LOC: H.ER 08:41 → H.ERHOLD 11:14 → H.MEDSURG1 13:03
PROVIDERS: ADMIT Hospitalist; ATTEND Hospitalist
DX: S52.022A Displaced fracture of olecranon process without intraarticular extension of left ulna, initial encounter for closed fracture (principal); T79.A0XA Compartment syndrome, unspecified, initial encounter; W01.0XXA Fall on same level from slipping, tripping and stumbling without subsequent striking against object, initial encounter; Y93.9 Activity, unspecified; Y92.9 Unspecified place or not applicable; Z82.3 Family history of stroke; Z90.49 Acquired absence of other specified parts of digestive tract; M25.40 Effusion, unspecified joint
CPT/HCPCS: 24105; 24341; 24685; 64415; 71045; 73030; 73060; 73070; 73080; 73090; 73200; 80048; 81003; 85025; 85610; 85730; 86850; 86900; 88305; 93005; 96372; 97161; 99285; C1713; G0378; G8978; G8979; G8980; J0330; J0690; J2001; J2250; J2270; J2704; J2710; J3010; J7040; J7120

== ENCOUNTER 2018-02-06 06:24 | Day surgery (SDC) | payer OTHER ==
[2018-01-28 00:24] VITALS: BMI 25.8
[2018-02-06] MEDS ORDERED: Lactated Ringer's 1,000 ML IV ONE ×2 (07:00→07:45)
[2018-02-06] MEDS ORDERED: Lidocaine 4% (Laryng-O-Jet) Kit MM ONE (07:10)
[2018-02-06] MEDS ORDERED: Succinylcholine 200 mg/10 ml Inj IV ONE (07:10)
[2018-02-06] MEDS ORDERED: Midazolam 2 MG/2 ML VIAL ONE (07:10)
[2018-02-06] MEDS ORDERED: Sevoflurane - Inhalation Anesthetic Liq (250 ml) ONE (07:10)
[2018-02-06] MEDS ORDERED: Rocuronium 10 mg/ml (5 ml) ONE (07:10)
[2018-02-06] MEDS ORDERED: Propofol 10 mg/ml Inj (20 ML) ONE (07:11)
--- NOTE | 2018-02-06 07:15 | CP.SDSHP ---
Same Day Surgery H & P - History Proposed Procedure: Left elbow hardware removal deep, s/p ORIF 07/08/2017 Pre-Op Diagnosis: painful hardware left elbow - Previous Medical/Surgical History Previous Surgical History: as above, no PMH. appendectomy. R breast biopsy. ORIF R wrist. ovarisan cyst excision. skin biopsy - Allergies Allergies: Allergies No Known Allergies Allergy (Verified 02/06/18 06:48) - Physical Exam Vital Signs: Vital Signs 02/06/18 06:46 Pulse Rate 58 L Mental Status: Alert & Oriented x3 Heart: WNL Lungs: WNL GI: WNL - {Optional Preform as Required} Ortho: Other (sensation intact +radial pulse, +ROM fingers/wrist/elbow) Other Pertinent Findings: [place] [employer]Y ANALYST patient report reviewed, no CDS except pain medication given post op 07/09/2017. Patient counseled on the risks of addiction, physical or psychological dependence, and overdose associated with opioid drugs and the danger of taking opioid drugs with alcohol and other central nervous system depressants, and cautioned patient on storage and disposal. - Impression Impression: 57F s/p left olecranon ORIF with painful hardware for hardware removal Pt. Evaluated Today:Candidate for Anesthesia & Procedure: Yes - Date & Time Date: 02/06/18 Time: 07:17 Short Stay Discharge - Short Stay Discharge Admitting Diagnosis/Reason for Visit: REMOVAL PUS L ELBOW Disposition: HOME/ ROUTINE
[2018-02-06] MEDS ORDERED: Bacitracin Ointment 30 GM TUBE ONE (07:22)
[2018-02-06] MEDS ORDERED: ceFAZolin IV 1 gm in Dextrose 2 GM/100 ML BAG IVPB ONE (07:22)
[2018-02-06] MEDS ORDERED: EPINEPHrine 1 mg/ml (1:1000) Inj ONE ×2 (07:36→09:04)
[2018-02-06] MEDS ORDERED: Dexamethasone 4 mg/1 ml ONE (08:10)
[2018-02-06] MEDS ORDERED: Bupivacaine HCl 0.25% PF (30 ml) Inj ONE (09:05)
[2018-02-06] MEDS ORDERED: Neostigmine 1:1000 (1 mg/ml) Inj ONE (09:07)
[2018-02-06] MEDS ORDERED: Oxycodone/Acetaminophen 5/325 mg Tab PO PRN (09:40)
[2018-02-06] MEDS ORDERED: Lactated Ringer's 1,000 ML IV SCH (10:00)
[2018-02-06] MEDS ORDERED: HYDROmorphone 0.5 mg/0.5 ml ISec IVP PRN (10:00)
[2018-02-06] MEDS ORDERED: Dexamethasone 4 mg/1 ml IVP PRN (10:00)
--- NOTE | 2018-02-06 10:06 | PCM.ANESB4 ---
Infraclavicular Block - Femoral Nerve Block Date of Procedure: 02/06/18 Anesthesiologist: Ross Lemus Pre-Procedure Diagnosis: Painful L elbow hardware Post-Procedure Diagnosis: Same Procedure Performed: Brachial Plexus at the Infraclavicular area Left (Left supraclavicular) - Procedure Infraclavicular Block: The procedure was explained to the patient that it is for the post-operative pain management. Consent was obtained after a thorough discussion with the patient regarding the benefits and possible complications of local anesthetic block of the brachial plexus at the infraclavicular area. The patient was brought to the operating room and standard monitors were applied. Time-out was held with the circulating nurse to confirm the correct surgery and the appropriate block. After completion of the surgery under general anesthesia, patient's head was gently rotated away from the operative left shoulder and the area medial to the coracoid process and superior to the clavicle was carefully palpated. The ultrasound transducer was then applied to the skin in the transverse plane and the brachial plexus was visualized lateral the subclavian artery. After thorough identification, this area was prepped with Chloraprep. At this point, a #21 gauge Stimuplex 4-inch needle was inserted cephalad to the ultrasound transducer and superior to the clavicle in-plane towards the posterior aspect of the subclavian artery. Needle advancement was performed carefully under ultrasound visualization. After repeated negative aspiration, 20cc of 0.25% bupivacaine with [id number] epinephrine was injected in 5cc aliquots. Under ultrasound guidance the local anesthetics were observed surrounding the cords of the brachial plexus. The needle was removed intact and sterile dressing was applied. The patient had stable vital signs, no sign of pneumothorax on ultrasound. The patient tolerated the supraclavicular block of the brachial plexus well with stable vital signs was extubated and taken to the recovery room.
--- NOTE | 2018-02-06 11:51 | RAD ---
Date of service: 02/06/2018 PROCEDURE: Radiographs of the left elbow. HISTORY: pt in pacu COMPARISON: No prior. FINDINGS: BONES: Technically limited examination. Bony detail obscured by overlying fiberglass splint in the frontal and oblique views. No acute fracture identified. The patient is status post removal of hardware following ORIF of olecranon fracture. There is a linear lucency longitudinally in the proximal ulna consistent with previous pin tract. JOINTS: Normal. No osteoarthritis. SOFT TISSUES: Normal. JOINT EFFUSION: None. OTHER FINDINGS: None IMPRESSION: No acute fracture. Status post removal of orthopedic hardware. Limited examination.
--- NOTE | 2018-02-06 12:53 | PCM.SURG1 ---
Surgeon's Initial Post Op Note - Surgeon's Notes Surgeon: Frederick To MD Development Team Lead: Shea ENNIS Type of Anesthesia: General Endo Anesthesia Administered By: Dr. Lemus Pre-Operative Diagnosis: Painful hardware left elbow s/p ORIF left olecranon fracture Operative Findings: as dictated Post-Operative Diagnosis: same Operation Performed: 1. Hardware removal left elbow, deep. 2. Left triceps repair. 3. Excision of olecranon bursa. 4. positioning of fluoroscope and interpretation of video imaging. 5. application of long arm posterior splint Specimen/Specimens Removed: hardware Estimated Blood Loss: EBL {In ML}: 10 Blood Products Given: N/A Drains Used: No Drains Post-Op Condition: Fair Date of Surgery/Procedure: 02/06/18 Time of Surgery/Procedure: 12:53
[2018-02-06 13:28] VITALS: RESP 18
[2018-02-06 16:13] VITALS: BP 125/82; PULSE 62; TEMP 97.6; O2SAT 96
--- NOTE | 2018-02-07 12:45 | RAD ---
Date of service: 02/06/2018 PROCEDURE: Intraoperative Fluoroscopy. HISTORY: LEFT ELBOW HARDWARE REMOVAL FINDINGS: Fluoroscopic assistance was provided for removal of hardware. Please refer to the operative report from LUISITO Linares. Total fluoroscopic time (continuous mode) utilized during the procedure 7.5 seconds.
--- NOTE | 2018-02-09 19:27 | OP ---
PROCEDURE DATE: 02/06/2018 PREOPERATIVE DIAGNOSIS: Painful hardware of left elbow status post open reduction and internal fixation of left olecranon fracture. POSTOPERATIVE DIAGNOSIS: Painful hardware of left elbow status post open reduction and internal fixation of left olecranon fracture. OPERATIVE PROCEDURES: 1. Hardware removal of left elbow, deep. 2. Repair of left triceps tendon. 3. Excision of olecranon bursa. 4. Positioning of fluoroscope and interpretation of video images. 5. Application of long-arm posterior splint. SURGEON: Mani To MD MEDICAL CSR: Paz Noriega, certified registered nursing r[employer]. ANESTHESIA: General endotracheal anesthesia. ANESTHESIA ADMINISTERED BY: Storm Lemus MD SPECIMENS REMOVED: Hardware and olecranon bursa. BLOOD LOSS: 10 mL. DRAINS: No drains. POSTOPERATIVE CONDITION: Stable. TIME OF SURGERY: Incision time 12:53. OPERATIVE INDICATIONS: Angelika Erickson is a 57-year-old woman, well known to my practice, who presented after an olecranon fracture. The patient underwent successful open reduction and internal fixation. The patient's fracture has healed . The hardware has migrated and has become painful. Pros, cons, risks and benefits of surgical approach were discussed. The possibility of mechanical failure, infection, thromboembolic disease, possibility of secondary or tertiary surgery was discussed. Possibility of stiffness and nerve injury was discussed. OPERATIVE PROCEDURE: After having obtained informed consent, after having identified side, site and procedure in a critical pause/time-out, after the satisfactory induction of the anesthetic, the patient was identified as Angelika Erickson in the supine position with all bony prominences well padded. The left upper extremity was prepped and free draped in the usual fashion for upper extremity surgery. The tourniquet had been applied, but was not yet inflated. After sterilely prepping and draping, after having identified the side, site and procedure and a critical pause/time-out, the left upper extremity was exsanguinated using a 4-inch Esmarch bandage, the tourniquet which had been applied was inflated to 250 mmHg. An incision was described two fingerbreadths proximal, two fingerbreadths distal. The skin incision was carried down through the skin and subcutaneous tissue. This having been accomplished, there was found to be evidence of a fluid-filled bursa which was tender, and taking great care to avoid compromise to the skin edges, a bursectomy was accomplished. The bursectomy was completed grasping the bursa with an Allis clamp, and using a combination of the electrocautery and the 15-blade, hemostasis having been controlled, the bursa was excised. The triceps tendon insertion into the olecranon was identified and it was protected, although there was a small rent from the previous procedure. At this point in time, the dissection was carried down to the proximal ulna superficially. Again, using a #15-blade and the periosteum elevator, the hardware was identified. The two pins were removed and the cerclage [id number] wire was removed as well. This having been accomplished, the wound was thoroughly irrigated. The tissue remnants were debrided. At this point in time using a drill bit, a PEEK anchor was introduced into the olecranon and with the arm in extension, the triceps tendon insertion into the olecranon was repaired using the interrupted nonabsorbable suture. This having been accomplished, the wound was thoroughly irrigated. An ellipse of skin and subcutaneous tissue had been excised. Closures in layers with interrupted Vicryl and 2-0 Quill for skin and shwetha. Catalino Mendoza compression dressing and posterior splint were applied. Under the surgeon's direction, fluoroscope was positioned, the video images were generated, therapeutic decisions were made therefrom. The patient was transferred from the operating room table to the stretcher having tolerated the procedure well. Mani To MD
== END 2018-02-06 16:40 | disposition home or self-care (01) ==
LOC: H.OPSURG 06:24
PROVIDERS: ATTEND Orthopaedic Surgery
DX: T84.84XA Pain due to internal orthopedic prosthetic devices, implants and grafts, initial encounter (principal); Y83.1 Surgical operation with implant of artificial internal device as the cause of abnormal reaction of the patient, or of later complication, without mention of misadventure at the time of the procedure
CPT/HCPCS: 20680; 24105; 73080; 88304; J0171; J0330; J0690; J1100; J2001; J2250; J2405; J2704; J2710; J3010; J7120